=== PATIENT | female | born 1990 | race Caucasian/White ===

== ENCOUNTER 2021-01-15 16:30 | Emergency (ER) | payer OTHER, SELFPAY ==
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
[2021-01-15 16:59] VITALS: BP 152/89; PULSE 75; RESP 16; TEMP 36.8; O2SAT 95; BMI 36.3
--- NOTE | 2021-01-15 18:10 | PC.NURSE ---
swab obtained to lab
[2021-01-15 18:33] LABS: COVID-19 Test Negative (Negative)
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
== END 2021-01-15 19:51 | disposition home or self-care (01) ==
PROVIDERS: Emergency Provider Emergency Medicine; PCP Internal Medicine
DX: J06.9 Acute upper respiratory infection, unspecified (principal); Z20.822 Contact with and (suspected) exposure to COVID-19; S16.1XXA Strain of muscle, fascia and tendon at neck level, initial encounter; V43.52XA Car driver injured in collision with other type car in traffic accident, initial encounter; Y93.9 Activity, unspecified; Y92.9 Unspecified place or not applicable; Y99.9 Unspecified external cause status
CPT/HCPCS: 36415; 72040; 87635; 99283

== ENCOUNTER 2024-11-05 14:58 | Emergency (ER) | payer OTHER, SELFPAY ==
--- NOTE | ~2024-11-05 | XR_ITS ---
EXAMINATION: XR FOOT 3 OR MORE VIEWS RIGHT HISTORY: pain, injury COMPARISON: There are no prior studies available for comparison. FINDINGS: Three views of the right foot are submitted. Osseous mineralization is normal. There is no fracture or dislocation. The joint spaces are preserved. The soft tissues are unremarkable. XR/XR foot RT min 3V IMPRESSION: Unremarkable examination of the right foot. Electronically signed by: Galdino Gracia MD 11/05/2024 03:41 PM EDT
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
[2024-11-05 15:05] VITALS: BP 132/67; PULSE 93; RESP 18; TEMP 36.7; O2SAT 95; BMI 44.1
[2024-11-05] MEDS: Ketorolac Tromethamine 15 MG/ML VIAL IM (17:41)
== END 2024-11-05 17:41 | disposition home or self-care (01) ==
PROVIDERS: Emergency Provider Internal Medicine; PCP Internal Medicine
DX: S93.601A Unspecified sprain of right foot, initial encounter (principal); W22.8XXA Striking against or struck by other objects, initial encounter; M79.671 Pain in right foot; Y93.89 Activity, other specified; Y92.019 Unspecified place in single-family (private) house as the place of occurrence of the external cause; Y99.9 Unspecified external cause status
CPT/HCPCS: 73630; 96372; 99283; 99284; J1885

== ENCOUNTER → 2024-11-05 15:05 | Outpatient (BNV) | payer OTHER, SELFPAY | PROVIDERS: PCP Internal Medicine; Visit Provider Radiology Diagnostic Radiology | DX: M79.671 Pain in right foot (principal); S99.921A Unspecified injury of right foot, initial encounter | CPT/HCPCS: 73630 ==

== ENCOUNTER 2024-11-15 18:00 | Emergency (ER) | payer OTHER, SELFPAY ==
[2024-11-15 18:15] VITALS: BP 100/60; PULSE 91; RESP 16; TEMP 36.2; O2SAT 97; BMI 38.9
--- NOTE | 2024-11-15 18:17 | ED_ITS ---
HPI - General Adult General Chief complaint: Medical Clearance Stated complaint: medical clearance (seen [facility] 11/05/24) Time Seen by Provider: 11/15/24 18:20 Source: patient and RN notes reviewed Mode of arrival: ambulatory Limitations: no limitations History of Present Illness ED Provider: Helen Win PA-C [facility] narrative: This is a 34-year-old female who presents emergency department for medical clearance. Patient was seen on 11/05 after injuring her foot. She states that she is feeling much better and would like to return back to work. Patient states that she was unable to return back to work as the work note that she was given did not provide her the ability to do so. She has not been using the crutches or walking boot. She is feeling much better and would like to return. She does have follow-up with Orthopedics. No other complaints or concerns at this time. MD complaint: Medical clearance Related Data Previous Rx's ?Medication ?Instructions ?Recorded cyclobenzaprine 10 mg tablet 10 mg PO TID PRN muscle s pasm #10 01/15/21 tabs Allergies Allergy/AdvReac Type Severity Reaction Status Date / Time No Known Allergies Allergy Verified 11/15/24 18:16 Review of Systems Review of Systems: Yes all other systems are reviewed and are negative Constitutional: Constitutional: Reports as per [facility] Social History Social History Advance Directives: No Advance Directives Information Provided: No Physical Exam ED Vital Signs: Vital Signs - 24 hr 11/15/24 18:15 11/15/24 18:37 Temperature 97.1 F 97.1 F Pulse Rate 91 91 Respiratory Rate 16 16 Blood Pressure 100/60 100/60 Pulse Oximetry 97 97 Oxygen Delivery Method Room Air Room Air BMI result Body Mass Index 38.9 Const Other: General: Awake, alert, and oriented X3. No acute distress. HEENT: Normal inspection CVS: Normal heart rate and rhythm. Pulses normal. Respiratory: No respiratory distress Skin: Warm, dry, no rashes noted to exposed skin. Normal skin color. Normal skin turgor. Extremities: Right foot, with no obvious bony deformity. She does have healing ecchymosis seen at the base of the 3rd and 4th metatarsal. Strong DP pulse. Ambulatory with steady gait. Neuro: Oriented X 3. No motor deficit. No sensory deficit. Medical Decision Making Medical Decision Making MDM Narrative: This is a 34-year-old female who presents emergency department for medical clearance. She states that she injured her right foot on November 05. She needs medical clearance to return back to work. She has not been using the walking boot or crutches as she no longer has pain. She does have follow-up with Orthopedics in several weeks. On arrival, vital signs within normal limits. She does have some ecchymosis seen at the base of the 3rd and 4th metatarsal, nontender, she is ambulatory with steady gait. I discussed with patient that she can return back to work. Given strict return precautions. She understands agrees with plan. Patient stable for discharge. Differential Diagnosis Differential Diagnoses: The differential diagnosis associated with the presentation includes Fracture, contusion, sprain, strain, medical clearance Discharge Plan Discharge Clinical Impression: Strain of foot, right Patient Disposition: Home, Self-Care Instructions: Arthralgia (ED) Additional Instructions: You were seen in the emergency department for clearance to return back to work. Follow-up with the orthopedics as scheduled. If you have pain again, you may return back to the emergency room. Take ibuprofen and or Tylenol as needed for pain if this occurs. Prescriptions: No Action cyclobenzaprine 10 mg tablet 10 mg PO TID PRN (Reason: muscle spasm) Qty: 10 0RF Stand Alone Forms: Work/School Release Interventions: ED Discharge Assessment Last Done: 11/15/24 18:37 Discharge Date/Time: 11/15/24 18:37 Print Language: Moldovan
[2024-11-15 18:37] VITALS: BP 100/60; PULSE 91; RESP 16; TEMP 36.2; O2SAT 97
== END 2024-11-15 18:37 | disposition home or self-care (01) ==
LOC: HO.ED 18:26
PROVIDERS: Emergency Provider Emergency Medicine Emergency Medical Services
DX: S96.911A Strain of unspecified muscle and tendon at ankle and foot level, right foot, initial encounter (principal); X58.XXXA Exposure to other specified factors, initial encounter; Y93.9 Activity, unspecified; Y92.9 Unspecified place or not applicable; Y99.9 Unspecified external cause status
CPT/HCPCS: 99282

== ENCOUNTER 2024-11-26 14:13 | Outpatient (AMB) | payer OTHER, SELFPAY ==
--- NOTE | 2024-11-26 14:19 | A.OFFVIS_ITS ---
Vital Signs 11/26/24 14:22 Height 5 ft 3 in Weight 219 lb BMI 38.8 Intake Visit Reasons: ED f/u-Rt foot sprain DOI: 11/05/24 Intake Note: Ashley is a 34 year old female who presents today as a new patient for an ER follow up of right foot sprain, DOI: 11/05/24. Patient was seen at [facility] after she tripped over a baby gate, causing her to twist her ankle and had felt a snap and pop. X-rays were obtained, she was placed in a short walking boot and crutches were provided. She returned to [facility] on 11/15/24 to be released to work as she discontinued boot wear and was no longer having any pain. She was provided with a return to work note with no restrictions and recommended to follow up with orthopedics. Patient reports mild discomfort at the top of her foot with applying pressure. States her bruising has improved. No numbness or tingling. Allergies No Known Allergies Allergy (Verified 11/26/24 14:21) Medication List - Last Reconciled 11/26/24 by Apolinar Flores PA-C No Known Home Meds HPI HPI ED f/u-Rt foot sprain DOI: 11/05/24: Details: 34-year-old female presents to the office today for a an injury she sustained to her right foot on 11/05/2024. She states she fell but does not recall the mechanism in which her foot landed. She does complain of pain along the top of her foot. She does recall hearing a pop when she fell. She was seen in the emergency department where x-rays were obtained and she was referred to our office for ortho eval. She states since her injury she has noticed an improvement in the pain however the area on the top of her foot feels tight. 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 She has some swelling over the dorsum of the foot along the base of the 2nd metatarsal. Mild discomfort over this area. Full range of motion of the ankle. Neurovascularly intact. Results Reviewed Results Reviewed: X-rays of the right foot obtained in the emergency department on 11/05/2024 are negative for any acute or chronic abnormalities. Assessment & Plan Assessment & Plan (1) Right foot sprain: Code(s): S93.601A - Unspecified sprain of right foot, initial encounter Category: Medical Plan: At this time the patient may have suffered a foot sprain which would benefit from physical therapy. She can weightbear as tolerated. I did educate her on fluctuations of pain and swelling with increase activities. I recommend ice and elevation and anti-inflammatory use as needed. I did place an order for physical therapy. If symptoms persist or worsen over the next 8 weeks she should contact our office otherwise follow up as needed. Orders: Orders PT Evaluation and Treatment Today Apolinar Flores PA-C S93.601A - Unspecified sprain of right foot, initial encounter Medications: Discontinued cyclobenzaprine Discontinued Reason: Patient no longer taking 10 mg PO TID PRN 10 tabs 0RF muscle spasm ASYA Licea Coding Level of Care Code New Pt Level 3 (79551) Complex EM visit Add On G2211 Diagnoses Right foot sprain S93.601A
[2024-11-26 14:22] VITALS: BMI 38.8
--- OUTSIDE RECORDS SUMMARY | 2024-11-26 15:03 | XMS_ITS | Clinical Summary ---
Author Organization [facility] it Address [address] [place] [address] Care Team Providers Care Adjunct Business Instructor Name Role Phone Unavailable Primary Care Provider Unavailabl e Social History Tobacco Use Types Packs/Day Years Used Date Smoking Tobacco: Never Assessed Comments Unknown Sex and Gender Information Value Date Recorded Sex Assigned at Not on file Legal Sex Female 8:34 PM EST Gender Identity Not on file Sexual Orientation Not on file Plan of Treatment Health Maintenance Due Date Last Done Comments DTaP,Tdap,and Td Vaccines (1 - Tdap) 2008 Hepatitis B Vaccines (1 of 3 - 19+ 3-dose series) 2008 Cervical Cancer Screening: P ap Smear 2010 COVID-19 Vaccine (1 - 2023-2 5 season) 2024 Depression Screening 05/09/2024 Influenza Vaccine (#1) 2025 HIB Vaccines Aged Out No longer eligi ble based on patient's age to complete this topic HPV Vaccines Aged Out No longer eligi ble based on patient's age to complete this topic Hepatitis A Vaccines Aged Out No long er eligible based on patient's age to complete this topic IPV Vaccines Aged Out No longer eligi ble based on patient's age to complete this topic MMR Vaccines Aged Out No longer eligi ble based on patient's age to complete this topic Meningococcal ACWY Vaccine Aged Out N o longer eligible based on patient's age to complete this topic Meningococcal B Vaccine Aged Out No l onger eligible based on patient's age to complete this topic Pneumococcal Vaccine: Pediat rics (0 to 5 Years) and At-Risk Patients (6 to 49 Years) Aged Out No longer eligible b ased on patient's age to complete this topic RSV Immunization Patients Un shadi 20 months Aged Out No longer eligible b ased on patient's age to complete this topic Varicella Vaccines Aged Out No longer eligible based on patient's age to complete this topic
== END 2024-11-26 14:46 | disposition home or self-care (01) ==
LOC: HO.HOS 14:14
PROVIDERS: PCP Internal Medicine; Visit Provider Physician Assistant
DX: S93.601A Unspecified sprain of right foot, initial encounter (principal)
CPT/HCPCS: 99203

== ENCOUNTER → 2024-11-26 14:13 | Outpatient (BNVA) | payer OTHER, SELFPAY | PROVIDERS: PCP Internal Medicine; Visit Provider Physician Assistant | DX: M79.671 Pain in right foot (principal); S93.601A Unspecified sprain of right foot, initial encounter | CPT/HCPCS: 99202 ==